=== PATIENT | male | born 1960 | race African-American/Black ===

== ENCOUNTER 2016-04-01 10:59 | Emergency (ER) | payer OTHER ==
[~2016-04-01] VITALS: Ht 172.7 cm; Wt 68.0 kg
[~2016-04-01 10:59] MED LIST: ABAC1TAB3 PO; ACYC30T; ADVAI100I PO; CHOL50006 PO; DARU1TAB PO; FLUC100T41 PO; FLUT1SPR9 NASAL; FOSA70TA PO; HYDR-3533 PO; HYDR-755 PO; IBUP400T20 PO; METHI10 PO; MONT10TA2 PO; NEUR100C PO; NYST500KS SS; SULF1TAB47 PO; TRAM100T19 PO; VALT1TAB26 PO
[2016-04-01 11:02] VITALS: BP 144/94; PULSE 84; RESP 18; TEMP 97.9; O2SAT 95
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
[2016-04-01] MEDS ORDERED: ACETAMINOPHEN/HYDROcodone 325 MG/5 MG TAB PO ONE (12:00)
--- NOTE | 2016-04-01 12:53 | RADRPT ---
EXAM DATE/TIME: 04/01/2016 12:14 [facility] COMPARISON: CHEST PA & LAT , July 02, 2014, 9:51. INDICATIONS : Shortness of breath. MEDICAL HISTORY : Asthma SURGICAL HISTORY : None. ENCOUNTER: Initial ACUITY: 1 day PAIN SCORE: 0/10 LOCATION: Bilateral chest FINDINGS: The cardiac silhouette is enlarged in transverse diameter. The lungs are free of acute parenchymal op acity. No effusions are identified. There is mild scoliotic deformity convex to the right. Fracture o f the left clavicle is present. There is a nodule in the left upper lobe measuring 12 mm. Malignancy is not excluded. CT scan is recommended for further evaluation if clinically indicated. CONCLUSION: 1. No acute cardiopulmonary disease. 2. Left clavicle fracture 3. 12 mm nodule left upper lobe. 4. CT scan is recommended for further evaluation if clinically indicated. Josias Camejo MD on April 01, 2016 at 12:50 Board Certified Radiologist. This report was verified electronically.
[2016-04-01] MEDS ORDERED: OSCA200T PO (13:10)
[2016-04-01] MEDS ORDERED: CETI1TAB39 PO (13:10)
[2016-04-01] MEDS ORDERED: LEXA20TA PO (13:10)
[2016-04-01] MEDS ORDERED: MULT-135 PO (13:10)
[2016-04-01] MEDS ORDERED: CROM4SOL2 EACH EYE (13:10)
[2016-04-01] MEDS ORDERED: ZOVI5OIN TOPICAL (13:10)
[2016-04-01] MEDS ORDERED: ZITH500T PO (13:10)
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
[2016-04-01] MEDS ORDERED: DIFL150T PO (13:19)
[2016-04-01] MEDS ORDERED: IBUP400T20 PO (13:19)
[2016-04-01] MEDS ORDERED: VALT1TAB PO (13:19)
[2016-04-01] MEDS ORDERED: FLUT1SPR5 EACH NARE (13:19)
[2016-04-01] MEDS ORDERED: METH5 PO (13:19)
[2016-04-01] MEDS ORDERED: BACT800T5 PO (13:19)
[2016-04-01] MEDS ORDERED: GABA100C4 PO (13:19)
[2016-04-01] MEDS ORDERED: TRAM50TA PO (13:19)
[2016-04-01] MEDS ORDERED: MONT10TA4 PO (13:19)
[2016-04-01] MEDS ORDERED: NYST1000 SWISH-SWAL (13:19)
[2016-04-01] MEDS ORDERED: HYDR-3133 PO (13:23)
[2016-04-01] MEDS ORDERED: FOSA70TA PO (13:23)
[2016-04-01] MEDS ORDERED: DARU1TAB2 PO (13:23)
[2016-04-01] MEDS ORDERED: DRIS50002 PO (13:23)
[2016-04-01] MEDS ORDERED: ADVA250A INH (13:23)
[2016-04-01] MEDS ORDERED: ABAC1TAB3 PO (13:23)
[2016-04-01] MEDS ORDERED: HYDR-3533 PO (13:33)
== END 2016-04-01 13:54 | disposition home or self-care (01) ==
LOC: NEPB 10:59
DX: S42.022A Displaced fracture of shaft of left clavicle, initial encounter for closed fracture (principal); Z86.19 Personal history of other infectious and parasitic diseases; V23.4XXA Motorcycle driver injured in collision with car, pick-up truck or van in traffic accident, initial encounter; Y93.9 Activity, unspecified; Y92.9 Unspecified place or not applicable; Y99.9 Unspecified external cause status
CPT/HCPCS: 71020; 73030; 73590; 99284

== ENCOUNTER 2018-01-01 00:29 | Observation (INO) ==
[2018-01-01] MEDS ORDERED: Sodium Chlor 0.9% Inj 500 ML IV.SIG SCH (05:00)
[2018-01-01 05:06] LABS: Baso # (Auto) 0.1 th/mm3 (0.0-0.2); Eos # (Auto) 0.9 th/mm3 (0.0-0.4); Hemoglobin 10.2 gm/dL (13.0-17.0); Lymph # (Auto) 1.8 th/mm3 (1.0-4.8); Lymph % (Auto) 30.5 % (9.0-44.0); Mean Corpuscular HGB Conc 34.1 % (32.0-36.0); Mean Corpuscular Hemoglobin 33.4 pg (27.0-34.0); Mean Corpuscular Volume 98.2 fL (80.0-100.0); Mono # (Auto) 0.8 th/mm3 (0.0-0.9); Mono % (Auto) 13.6 % (0.0-8.0); Neut # (Auto) 2.3 th/mm3 (1.8-7.7); Neut % (Auto) 39.9 % (16.0-70.0); Platelet Count 263 th/mm3 (150-450); Red Blood Count 3.05 mil/mm3 (4.50-5.90); Red Cell Distribution Width 13.5 % (11.6-17.2); White Blood Count 5.8 th/mm3 (4.0-11.0)
[2018-01-01 05:20] LABS: Anion Gap 6 meq/L (5-15); Aspartate Aminotransferase 20 U/L (15-37); Blood Urea Nitrogen 11 mg/dL (7-18); Calcium 8.1 mg/dL (8.5-10.1); Carbon Dioxide 26.1 meq/L (21.0-32.0); Chloride 104 meq/L (98-107); Glomerular Filtration Rate Greater Than 89 mL/min (>89); Glucose,Random 85 mg/dL (74-106); Magnesium 1.9 mg/dL (1.5-2.5); Potassium 3.4 meq/L (3.5-5.1); Sodium 136 meq/L (136-145)
[2018-01-01 05:22] LABS: Alanine Aminotransferase 15 U/L (12-78)
[2018-01-01 05:24] LABS: Alkaline Phosphatase 58 U/L (45-117); Total Protein 6.9 g/dL (6.4-8.2)
[2018-01-01] MEDS ORDERED: Acetaminophen 500 MG Tablet PO ONE (05:49)
[2018-01-01 05:59] LABS: ABG Base Excess -1.4 mmol/L (-2-2); ABG PCO2 35 mmHg (38-42); ABG PO2 76 mmHg (61-120)
--- NOTE | 2018-01-01 05:59 | XR ---
EXAM DATE: 01/01/2018 5:37 AM EST AGE/SEX: 57 years / Male INDICATIONS: . Fever and shortness of breath. CLINICAL DATA: This is the patient's initial encounter. Patient reports that signs and symptoms have been present for 1 day and indicates a pain score of 0/10. MEDICAL/SURGICAL HISTORY: Asthma. HIV. Mitral valve disease. Inguinal hernia repair. Hand brielle jacinto [place] [facility] [place]. . FINDINGS: PA and lateral views of the chest demonstrate the lungs to be symmetrically aerated without evidence of mass, infiltrate or effusion. The cardiomediastinal contours are unremarkable. Osseous structures are intact. CONCLUSION: No acute disease Electronically signed by: Kiran Pittman MD 01/01/2018 5:58 AM EST
--- NOTE | 2018-01-01 07:10 | CT ---
EXAM DATE: 01/01/2018 6:58 AM EST AGE/SEX: 57 years / Male INDICATIONS: Shortness of breath with swollen legs. CLINICAL DATA: This is the patient's initial encounter. Patient reports that signs and symptoms have been present for 1 day and indicates a pain score of 7/10. MEDICAL/SURGICAL HISTORY: HIV. Cardiovascular disease. None. RADIATION DOSE: 8.09 CTDI (mGy) COMPARISON: [facility], CT CHEST W AND W/O CONTRAST, 05/12/2016. . TECHNIQUE: Volumetric scanning was performed using a multi-row detector CT scanner during bolus infu marcelo of 70 ml Omnipaque 350 (iohexol) nonionic water-soluble contrast as a single exam dose. The levi a was post processed with a variety of visualization algorithms including full volume maximum intensi ty projection and sliding thin slab reformation. Using automated exposure control and adjustment of t he mA and/or kV according to patient size, radiation dose was kept as low as reasonably achievable to obtain optimal diagnostic quality images. DICOM format image data is available electronically for r eview and comparison. FINDINGS: Pulmonary Arteries: No filling defects are seen in the pulmonary arteries out to the subsegmental ve ssels. The left and right pulmonary arteries are normal in diameter. Lung: No consolidating infiltrates seen. Interstitial prominence is identified in the left lower lob e which appears chronic. Effusion: None. Mediastinum: No evidence of mediastinal or hilar adenopathy. Other: The axilla is unremarkable. CONCLUSION: 1. No evidence of acute pulmonary embolism. 2. Left lower lobe interstitial lung disease which appears chronic. 3. No evidence of consolidating airspace disease. Electronically signed by: Yayo Cao MD 01/01/2018 7:09 AM EST
--- NOTE | 2018-01-01 07:17 | ED ---
HPI General Chief Complaint: Shortness of Breath/Dyspnea Stated Complaint: Sob swelling legs Time Seen by Provider: 01/01/18 04:28 History of Present Illness This is a 57-year male with history of HIV disease, asthma, who presents today with complaints of shortness of breath and pleuritic chest pain. Patient also reports fevers and chills. There is no nausea vomiting. There is no diaphoresis. Patient states his last CD4 count was over 200. He states he has been taking his medications as prescribed. Related Data Home Medications Medication Instructions Recorded Confirmed [id number] 1 tab PO DAILY 01/01/18 01/05/18 [Triumeq] albuterol sulfate [ProAir HFA] 2 puff INHALATION Q4-6H PRN 01/01/18 01/05/18 alendronate [Fosamax] 70 mg PO QWEEK 01/01/18 01/05/18 ammonium lactate [AmLactin] 1 applic TOPICAL DAILY 01/01/18 01/05/18 azithromycin 1,000 mg PO WEEKLY 01/01/18 01/05/18 cetirizine [Zyrtec] 10 mg PO EVERY OTHER DAY 01/01/18 01/05/18 cholestyramine (with sugar) 4 g PO BID 01/01/18 01/05/18 darunavir-cobicistat [Prezcobix] 1 tab PO DAILY 01/01/18 01/05/18 ergocalciferol (vitamin D2) 50,000 unit PO QWEEK 01/01/18 01/05/18 [Vitamin D2] fluconazole 150 mg PO DAILY 01/01/18 01/05/18 fluticasone [Flonase Allergy 2 spray INTRANASAL BID 01/01/18 01/05/18 Relief] fluticasone-salmeterol [Advair 1 inh INHALATION BID 01/01/18 01/05/18 Diskus] gentamicin 1 applic TOPICAL TID 01/01/18 01/05/18 hydrocodone-acetaminophen 2 tab PO BID PRN 01/01/18 01/05/18 hydroxyzine HCl 50 mg PO QID PRN 01/01/18 01/05/18 ibuprofen 400 mg PO TID PRN 01/01/18 01/05/18 levocetirizine 10 mg PO EVERY OTHER DAY 01/01/18 01/05/18 montelukast [Singulair] 10 mg PO QPM 01/01/18 01/05/18 mupirocin calcium [Bactroban] 1 applic TOPICAL BID PRN 01/01/18 01/05/18 sulfamethoxazole-trimethoprim 1 tab PO DAILY 01/01/18 01/05/18 [Bactrim DS] valacyclovir [Valtrex] 1,000 mg PO DAILY 01/01/18 01/05/18 Previous Rx's Medication Instructions Recorded docusate sodium [Colace] 100 mg PO BID #20 cap 01/06/18 polyethylene glycol 3350 [Miralax] 17 g PO DAILY PRN 5 Days #10 each 01/06/18 Allergies Allergy/AdvReac Type Severity Reaction Status Date / Time ciprofloxacin Allergy Severe Hives Verified 01/01/18 14:45 indinavir Allergy Severe SEVERE,BIZARRE Verified 01/01/18 14:45 BEHAVIOR;HALLUCINATIONS NEOLOMINE Allergy Severe ASTHMA Uncoded 01/01/18 14:45 ATTACK Review of Systems Constitutional Reports chills and Reports fever(s) Eyes Reports system reviewed and no additional complaints, except as docu ENT Reports system reviewed and no additional complaints, except as docu Cardiovascular Reports chest pain, Denies diaphoresis and Reports dyspnea Respiratory Denies chest congestion, Denies cough and Reports dyspnea Gastrointestinal Reports system reviewed and no additional complaints, except as docu, Denies nausea and Denies vomiting Genitourinary Reports system reviewed and no additional complaints, except as docu Musculoskeletal Reports system reviewed and no additional complaints, except as docu Neurologic Reports system reviewed and no additional complaints, except as docu, Denies dizziness and Denies headache(s) [facility] Family History Family History Mother Family history of hypertension Social History Social History Substance History: No History of Abuse Second Hand Smoke Exposure: No Smoking Status: Never smoker How Often Do You Have a Drink Containing Alcohol: Monthly or less Recent Travel in [facility] within the Last 8 Weeks: No Recent Out of Country Travel within the Last 8 Weeks: No Immunization History Tetanus Immunization: Unsure Exam Narrative Exam Narrative: GENERAL: Well-developed well-nourished male in no obvious respiratory distress. SKIN: Focused skin assessment warm/dry. HEAD: Atraumatic. Normocephalic. EYES: No scleral icterus. No injection or drainage. ENT: No nasal bleeding or discharge. Mucous membranes pink and moist. NECK: Trachea midline. Supple. CARDIOVASCULAR: Regular rate and rhythm. 2/6 systolic murmur heard at the left sternal border. RESPIRATORY: No accessory muscle use. Clear to auscultation. Breath sounds equal bilaterally. GASTROINTESTINAL: Abdomen soft, non-tender, nondistended. Hepatic and splenic margins not palpable. MUSCULOSKELETAL: No obvious deformities. No clubbing. No cyanosis. No edema. NEUROLOGICAL: Awake and alert. No obvious cranial nerve deficits. Motor grossly within normal limits. Normal speech. Course Initial Documented Vital Signs Temperature 100.8 F H 01/01/18 01:01 EDT Pulse Rate 104 H 01/01/18 01:01 EDT Respiratory Rate 16 01/01/18 01:01 EDT Blood Pressure 127/83 01/01/18 01:01 EDT Pulse Oximetry 99 01/01/18 01:01 EDT Last Documented Vital Signs Temperature 97.8 F 01/03/18 07:24 Pulse Rate 86 01/03/18 07:24 Respiratory Rate 20 01/03/18 07:24 Blood Pressure 120/64 01/03/18 07:24 Pulse Oximetry 98 01/03/18 07:24 Sign Out Sign Out Data: Patient Sign Out occurred on 01/01/18 at 08:01. Patient's care was discussed, and care was transferred from Yoav Mujica MD to Noe Khanna. Sign Out Comment: 57-year-old male with history of HIV disease, presents today with complaints of fevers chills and dyspnea. Patient has a pH above 7.4. Patient also has a PCO2 that is 35. This is indicative of tachypnea. Concern is for pulmonary embolus. CT scan of the chest was ordered to rule out pulmonary emboli. He was signed out to Dr. Khanna. I anticipate the patient will need admission. He does have a fever of unknown origin at this time. Last updated by Yoav Mujica MD at 01/01/18 07:26 Medical Decision Making MDM Narrative Medical Screen Exam Complete: Yes Emergency Medical Condition: Yes Differential Diagnosis Differential Diagnosis: Atypical pneumonia versus pulmonary embolus versus metabolic derangement versus cystitis versus viral syndrome Lab Data Result diagrams: 01/02/18 09:43 01/02/18 09:43 Lab Results 11/04/18 11/04/18 11/04/18 Range/Units 04:45 04:50 04:50 WBC 5.8 (4.0-11.0) th/mm3 RBC 3.05 L (4.50-5.90) mil/mm3 Hgb 10.2 L (13.0-17.0) gm/dL Hct 30.0 L (39.0-51.0) % MCV 98.2 (80.0-100.0) fL MCH 33.4 (27.0-34.0) pg MCHC 34.1 (32.0-36.0) % RDW 13.5 (11.6-17.2) % Plt Count 263 (150-450) th/mm3 MPV 6.0 L (7.0-11.0) fL Neut % (Auto) 39.9 (16.0-70.0) % Lymph % (Auto) 30.5 (9.0-44.0) % [place] % (Auto) 13.6 H (0.0-8.0) % Eos % (Auto) 15.0 H (0.0-4.0) % Baso % (Auto) 1.0 (0.0-2.0) % Neut # (Auto) 2.3 (1.8-7.7) th/mm3 Lymph # (Auto) 1.8 (1.0-4.8) th/mm3 [place] # (Auto) 0.8 (0.0-0.9) th/mm3 Eos # (Auto) 0.9 H (0.0-0.4) th/mm3 Baso # (Auto) 0.1 (0.0-0.2) th/mm3 WBC Differential . Differential Comment Auto diff final ESR (0-20) mm/hr Puncture Site Patient Temperature O2 Saturation (90-100) % ABG pH (7.380-7.420) ABG pCO2 (38-42) mmHg ABG pO2 (61-120) mmHg ABG HCO3 (22-26) mmol/L ABG O2 Content (12.0-20.0) Vol % ABG Base Excess (-2-2) mmol/L ABG Methemoglobin (0-2) % Ji Test Hemoglobin (12.0-16.0) G/DL Carboxyhemoglobin (0-4) % Inspired O2 % Critical Value Sodium 136 (136-145) meq/L Potassium 3.4 L (3.5-5.1) meq/L Chloride 104 (98-107) meq/L Carbon Dioxide 26.1 (21.0-32.0) meq/L Anion Gap 6 (5-15) meq/L BUN 11 (7-18) mg/dL Creatinine 0.92 (0.60-1.30) mg/dL Estimated GFR Greater than 89 (>89) mL/min Random Glucose 85 (74-106) mg/dL Hemoglobin A1c (4.3-6.0) % Lactic Acid 1.6 (0.4-2.0) mmol/L Calcium 8.1 L (8.5-10.1) mg/dL Magnesium 1.9 (1.5-2.5) mg/dL Total Bilirubin 0.8 (0.2-1.0) mg/dL AST 20 (15-37) U/L ALT 15 (12-78) U/L Alkaline Phosphatase 58 (45-117) U/L Total Creatine Kinase (39-308) U/L Troponin I Less than 0.02 L (0.02-0.05) ng/mL C-Reactive Protein (0.00-0.30) mg/dL B-Natriuretic Peptide (0-100) pg/mL Total Protein 6.9 (6.4-8.2) g/dL Albumin 3.0 L (3.4-5.0) g/dL Triglycerides (42-150) mg/dL Cholesterol (120-200) mg/dL LDL Cholesterol, Calc (0-99) mg/dL HDL Cholesterol (40.0-60.0) mg/dL Cholesterol/HDL Ratio Ratio TSH (0.358-3.740) uIU/mL Urine Color (Yellw/Straw) Urine Clarity (Clear) Urine pH (5.0-8.5) Ur Specific [place] (1.002-1.035) Urine Protein (Neg-Trace) mg/dL Urine Glucose (UA) (Negative) mg/dL Urine Ketones (Negative) mg/dL Urine Occult Blood (Negative) Urine Nitrate (Negative) Urine Bilirubin (Negative) Urine Urobilinogen (Less than 2) mg/dL Ur Leukocyte Esterase (Negative) Urine RBC (0-3) /hpf Urine WBC (0-5) /hpf Ur Squamous Epith Cells (0-5) /hpf Urine Mucus (Occasional) /lpf Micro UA Comment Ur Microscopic Review Urine Culture Comments 01/01/18 01/01/18 01/01/18 Range/Units 05:51 07:50 09:50 WBC (4.0-11.0) th/mm3 RBC (4.50-5.90) mil/mm3 Hgb (13.0-17.0) gm/dL Hct (39.0-51.0) % MCV (80.0-100.0) fL MCH (27.0-34.0) pg MCHC (32.0-36.0) % RDW (11.6-17.2) % Plt Count (150-450) th/mm3 MPV (7.0-11.0) fL Neut % (Auto) (16.0-70.0) % Lymph % (Auto) (9.0-44.0) % [place] % (Auto) (0.0-8.0) % Eos % (Auto) (0.0-4.0) % Baso % (Auto) (0.0-2.0) % Neut # (Auto) (1.8-7.7) th/mm3 Lymph # (Auto) (1.0-4.8) th/mm3 [place] # (Auto) (0.0-0.9) th/mm3 Eos # (Auto) (0.0-0.4) th/mm3 Baso # (Auto) (0.0-0.2) th/mm3 WBC Differential Differential Comment ESR (0-20) mm/hr Puncture Site Left radial Patient Temperature 98.6 O2 Saturation 94 (90-100) % ABG pH 7.43 H (7.380-7.420) ABG pCO2 35 L (38-42) mmHg ABG pO2 76 (61-120) mmHg ABG HCO3 22 (22-26) mmol/L ABG O2 Content 12.4 (12.0-20.0) Vol % ABG Base Excess -1.4 (-2-2) mmol/L ABG Methemoglobin 0.4 (0-2) % Ji Test Present Hemoglobin 9.4 L (12.0-16.0) G/DL Carboxyhemoglobin 1.7 (0-4) % Inspired O2 21 % Critical Value No Sodium (136-145) meq/L Potassium (3.5-5.1) meq/L Chloride (98-107) meq/L Carbon Dioxide (21.0-32.0) meq/L Anion Gap (5-15) meq/L BUN (7-18) mg/dL Creatinine (0.60-1.30) mg/dL Estimated GFR (>89) mL/min Random Glucose (74-106) mg/dL Hemoglobin A1c (4.3-6.0) % Lactic Acid (0.4-2.0) mmol/L Calcium (8.5-10.1) mg/dL Magnesium (1.5-2.5) mg/dL Total Bilirubin (0.2-1.0) mg/dL AST (15-37) U/L ALT (12-78) U/L Alkaline Phosphatase (45-117) U/L Total Creatine Kinase 132 (39-308) U/L Troponin I Less than 0.02 L (0.02-0.05) ng/mL C-Reactive Protein (0.00-0.30) mg/dL B-Natriuretic Peptide (0-100) pg/mL Total Protein (6.4-8.2) g/dL Albumin (3.4-5.0) g/dL Triglycerides (42-150) mg/dL Cholesterol (120-200) mg/dL LDL Cholesterol, Calc (0-99) mg/dL HDL Cholesterol (40.0-60.0) mg/dL Cholesterol/HDL Ratio Ratio TSH (0.358-3.740) uIU/mL Urine Color Yellow (Yellw/Straw) Urine Clarity Clear (Clear) Urine pH 6.0 (5.0-8.5) Ur Specific [place] 1.017 (1.002-1.035) Urine Protein Negative (Neg-Trace) mg/dL Urine Glucose (UA) Negative (Negative) mg/dL Urine Ketones Negative (Negative) mg/dL Urine Occult Blood Negative (Negative) Urine Nitrate Negative (Negative) Urine Bilirubin Negative (Negative) Urine Urobilinogen Less than 2 (Less than 2) mg/dL Ur Leukocyte Esterase Negative (Negative) Urine RBC 2 (0-3) /hpf Urine WBC 1 (0-5) /hpf Ur Squamous Epith Cells <1 (0-5) /hpf Urine Mucus Few H (Occasional) /lpf Micro UA Comment Culture not ind Ur Microscopic Review Not Reportable Urine Culture Comments Culture not ind 01/01/18 01/01/18 01/01/18 Range/Units 09:50 09:50 09:50 WBC (4.0-11.0) th/mm3 RBC (4.50-5.90) mil/mm3 Hgb (13.0-17.0) gm/dL Hct (39.0-51.0) % MCV (80.0-100.0) fL MCH (27.0-34.0) pg MCHC (32.0-36.0) % RDW (11.6-17.2) % Plt Count (150-450) th/mm3 MPV (7.0-11.0) fL Neut % (Auto) (16.0-70.0) % Lymph % (Auto) (9.0-44.0) % [place] % (Auto) (0.0-8.0) % Eos % (Auto) (0.0-4.0) % Baso % (Auto) (0.0-2.0) % Neut # (Auto) (1.8-7.7) th/mm3 Lymph # (Auto) (1.0-4.8) th/mm3 [place] # (Auto) (0.0-0.9) th/mm3 Eos # (Auto) (0.0-0.4) th/mm3 Baso # (Auto) (0.0-0.2) th/mm3 WBC Differential Differential Comment ESR (0-20) mm/hr Puncture Site Patient Temperature O2 Saturation (90-100) % ABG pH (7.380-7.420) ABG pCO2 (38-42) mmHg ABG pO2 (61-120) mmHg ABG HCO3 (22-26) mmol/L ABG O2 Content (12.0-20.0) Vol % ABG Base Excess (-2-2) mmol/L ABG Methemoglobin (0-2) % Ji Test Hemoglobin (12.0-16.0) G/DL Carboxyhemoglobin (0-4) % Inspired O2 % Critical Value Sodium (136-145) meq/L Potassium (3.5-5.1) meq/L Chloride (98-107) meq/L Carbon Dioxide (21.0-32.0) meq/L Anion Gap (5-15) meq/L BUN (7-18) mg/dL Creatinine (0.60-1.30) mg/dL Estimated GFR (>89) mL/min Random Glucose (74-106) mg/dL Hemoglobin A1c 4.4 (4.3-6.0) % Lactic Acid (0.4-2.0) mmol/L Calcium (8.5-10.1) mg/dL Magnesium (1.5-2.5) mg/dL Total Bilirubin (0.2-1.0) mg/dL AST (15-37) U/L ALT (12-78) U/L Alkaline Phosphatase (45-117) U/L Total Creatine Kinase (39-308) U/L Troponin I (0.02-0.05) ng/mL C-Reactive Protein (0.00-0.30) mg/dL B-Natriuretic Peptide 58 (0-100) pg/mL Total Protein (6.4-8.2) g/dL Albumin (3.4-5.0) g/dL Triglycerides (42-150) mg/dL Cholesterol (120-200) mg/dL LDL Cholesterol, Calc (0-99) mg/dL HDL Cholesterol (40.0-60.0) mg/dL Cholesterol/HDL Ratio Ratio TSH 1.060 (0.358-3.740) uIU/mL Urine Color (Yellw/Straw) Urine Clarity (Clear) Urine pH (5.0-8.5) Ur Specific [place] (1.002-1.035) Urine Protein (Neg-Trace) mg/dL Urine Glucose (UA) (Negative) mg/dL Urine Ketones (Negative) mg/dL Urine Occult Blood (Negative) Urine Nitrate (Negative) Urine Bilirubin (Negative) Urine Urobilinogen (Less than 2) mg/dL Ur Leukocyte Esterase (Negative) Urine RBC (0-3) /hpf Urine WBC (0-5) /hpf Ur Squamous Epith Cells (0-5) /hpf Urine Mucus (Occasional) /lpf Micro UA Comment Ur Microscopic Review Urine Culture Comments 01/01/18 01/02/18 01/02/18 Range/Units 09:50 04:10 09:43 WBC 5.2 (4.0-11.0) th/mm3 RBC 3.05 L (4.50-5.90) mil/mm3 Hgb 10.3 L (13.0-17.0) gm/dL Hct 29.7 L (39.0-51.0) % MCV 97.4 (80.0-100.0) fL MCH 33.8 (27.0-34.0) pg MCHC 34.7 (32.0-36.0) % RDW 13.5 (11.6-17.2) % Plt Count 285 (150-450) th/mm3 MPV 6.4 L (7.0-11.0) fL Neut % (Auto) 79.0 H (16.0-70.0) % Lymph % (Auto) 17.4 (9.0-44.0) % [place] % (Auto) 2.9 (0.0-8.0) % Eos % (Auto) 0.0 (0.0-4.0) % Baso % (Auto) 0.7 (0.0-2.0) % Neut # (Auto) 4.1 (1.8-7.7) th/mm3 Lymph # (Auto) 0.9 L (1.0-4.8) th/mm3 [place] # (Auto) 0.2 (0.0-0.9) th/mm3 Eos # (Auto) 0.0 (0.0-0.4) th/mm3 Baso # (Auto) 0.0 (0.0-0.2) th/mm3 WBC Differential . Differential Comment Auto diff final ESR (0-20) mm/hr Puncture Site Patient Temperature O2 Saturation (90-100) % ABG pH (7.380-7.420) ABG pCO2 (38-42) mmHg ABG pO2 (61-120) mmHg ABG HCO3 (22-26) mmol/L ABG O2 Content (12.0-20.0) Vol % ABG Base Excess (-2-2) mmol/L ABG Methemoglobin (0-2) % Ji Test Hemoglobin (12.0-16.0) G/DL Carboxyhemoglobin (0-4) % Inspired O2 % Critical Value Sodium (136-145) meq/L Potassium (3.5-5.1) meq/L Chloride (98-107) meq/L Carbon Dioxide (21.0-32.0) meq/L Anion Gap (5-15) meq/L BUN (7-18) mg/dL Creatinine (0.60-1.30) mg/dL Estimated GFR (>89) mL/min Random Glucose (74-106) mg/dL Hemoglobin A1c (4.3-6.0) % Lactic Acid (0.4-2.0) mmol/L Calcium (8.5-10.1) mg/dL Magnesium (1.5-2.5) mg/dL Total Bilirubin (0.2-1.0) mg/dL AST (15-37) U/L ALT (12-78) U/L Alkaline Phosphatase (45-117) U/L Total Creatine Kinase 115 (39-308) U/L Troponin I Less than 0.02 L (0.02-0.05) ng/mL C-Reactive Protein (0.00-0.30) mg/dL B-Natriuretic Peptide (0-100) pg/mL Total Protein (6.4-8.2) g/dL Albumin (3.4-5.0) g/dL Triglycerides 46 (42-150) mg/dL Cholesterol 93 L (120-200) mg/dL LDL Cholesterol, Calc 51 (0-99) mg/dL HDL Cholesterol 32.4 L (40.0-60.0) mg/dL Cholesterol/HDL Ratio 2.87 Ratio TSH (0.358-3.740) uIU/mL Urine Color (Yellw/Straw) Urine Clarity (Clear) Urine pH (5.0-8.5) Ur Specific [place] (1.002-1.035) Urine Protein (Neg-Trace) mg/dL Urine Glucose (UA) (Negative) mg/dL Urine Ketones (Negative) mg/dL Urine Occult Blood (Negative) Urine Nitrate (Negative) Urine Bilirubin (Negative) Urine Urobilinogen (Less than 2) mg/dL Ur Leukocyte Esterase (Negative) Urine RBC (0-3) /hpf Urine WBC (0-5) /hpf Ur Squamous Epith Cells (0-5) /hpf Urine Mucus (Occasional) /lpf Micro UA Comment Ur Microscopic Review Urine Culture Comments 01/02/18 01/02/18 01/02/18 Range/Units 09:43 09:43 09:43 WBC (4.0-11.0) th/mm3 RBC (4.50-5.90) mil/mm3 Hgb (13.0-17.0) gm/dL Hct (39.0-51.0) % MCV (80.0-100.0) fL MCH (27.0-34.0) pg MCHC (32.0-36.0) % RDW (11.6-17.2) % Plt Count (150-450) th/mm3 MPV (7.0-11.0) fL Neut % (Auto) (16.0-70.0) % Lymph % (Auto) (9.0-44.0) % [place] % (Auto) (0.0-8.0) % Eos % (Auto) (0.0-4.0) % Baso % (Auto) (0.0-2.0) % Neut # (Auto) (1.8-7.7) th/mm3 Lymph # (Auto) (1.0-4.8) th/mm3 [place] # (Auto) (0.0-0.9) th/mm3 Eos # (Auto) (0.0-0.4) th/mm3 Baso # (Auto) (0.0-0.2) th/mm3 WBC Differential Differential Comment ESR 43 H (0-20) mm/hr Puncture Site Patient Temperature O2 Saturation (90-100) % ABG pH (7.380-7.420) ABG pCO2 (38-42) mmHg ABG pO2 (61-120) mmHg ABG HCO3 (22-26) mmol/L ABG O2 Content (12.0-20.0) Vol % ABG Base Excess (-2-2) mmol/L ABG Methemoglobin (0-2) % Ji Test Hemoglobin (12.0-16.0) G/DL Carboxyhemoglobin (0-4) % Inspired O2 % Critical Value Sodium 137 (136-145) meq/L Potassium 4.5 D (3.5-5.1) meq/L Chloride 104 (98-107) meq/L Carbon Dioxide 24.9 (21.0-32.0) meq/L Anion Gap 8 (5-15) meq/L BUN 9 (7-18) mg/dL Creatinine 0.93 (0.60-1.30) mg/dL Estimated GFR Greater than 89 (>89) mL/min Random Glucose 133 H (74-106) mg/dL Hemoglobin A1c (4.3-6.0) % Lactic Acid (0.4-2.0) mmol/L Calcium 8.3 L (8.5-10.1) mg/dL Magnesium (1.5-2.5) mg/dL Total Bilirubin 0.5 (0.2-1.0) mg/dL AST 18 (15-37) U/L ALT 16 (12-78) U/L Alkaline Phosphatase 51 (45-117) U/L Total Creatine Kinase (39-308) U/L Troponin I (0.02-0.05) ng/mL C-Reactive Protein 2.84 H (0.00-0.30) mg/dL B-Natriuretic Peptide (0-100) pg/mL Total Protein 6.9 (6.4-8.2) g/dL Albumin 2.7 L (3.4-5.0) g/dL Triglycerides (42-150) mg/dL Cholesterol (120-200) mg/dL LDL Cholesterol, Calc (0-99) mg/dL HDL Cholesterol (40.0-60.0) mg/dL Cholesterol/HDL Ratio Ratio TSH (0.358-3.740) uIU/mL Urine Color (Yellw/Straw) Urine Clarity (Clear) Urine pH (5.0-8.5) Ur Specific [place] (1.002-1.035) Urine Protein (Neg-Trace) mg/dL Urine Glucose (UA) (Negative) mg/dL Urine Ketones (Negative) mg/dL Urine Occult Blood (Negative) Urine Nitrate (Negative) Urine Bilirubin (Negative) Urine Urobilinogen (Less than 2) mg/dL Ur Leukocyte Esterase (Negative) Urine RBC (0-3) /hpf Urine WBC (0-5) /hpf Ur Squamous Epith Cells (0-5) /hpf Urine Mucus (Occasional) /lpf Micro UA Comment Ur Microscopic Review Urine Culture Comments Imaging Data Radiologist's impression: Venous Doppler Study 01/01/18 00:00 CONCLUSION: The study is negative for bilateral lower extremity deep venous thrombosis. Chest X-Ray 01/01/18 04:45 CONCLUSION: No acute disease Chest CTA 01/01/18 06:19 CONCLUSION: 1. No evidence of acute pulmonary embolism. 2. Left lower lobe interstitial lung disease which appears chronic. 3. No evidence of consolidating airspace disease. Discharge Plan Discharge Disposition Patient Disposition: 01 Discharge Home Discharge Condition Condition: Good Discharge Order Discharge Orders: Discharge Order (Routine); Ordered 01/03/18 Ordered By: Jamie Song Physicians Team ED Provider: Noe Khanna Primary Care Provider: UNKNOWN, Attending Provider: Jamie Song Other Providers: Ronni Rudolph ; Ying Charles Status ED Status: Left Department Discharge Information Discharge Date/Time: 01/01/18 10:15
[2018-01-01 08:28] LABS: Bilirubin,Urine Negative (Negative); Clarity,Urine Clear (Clear); Color,Urine Yellow (Yellw/Straw); Glucose,Urine (UA) Negative (Negative); Leukocyte Esterase,Urine Negative (Negative); Mucus,Urine Few /lpf (Occasional); Nitrite,Urine Negative (Negative); Specific Gravity,Urine 1.017 (1.002-1.035); Squamous Epithelial Cell,Urine <1 /hpf (0-5)
[2018-01-01] MEDS ORDERED: Bisacodyl 10 MG Supp RECTAL PRN (08:37)
[2018-01-01] MEDS ORDERED: Acetaminophen 325 MG Tablet PO PRN (08:37)
--- NOTE | 2018-01-01 08:47 | P.HP ---
History of Present Illness Primary Care Physician: UNKNOWN Chief Complaint: Shortness of Breath/Dyspnea History of Present Illness: This is a pleasant 57 y/o Male with HIV, Asthma, who came to ER with Pleuritic chest pain and shortness of breath Patient also reports fevers and chills. There is no nausea vomiting. There is no diaphoresis. Patient states his last CD4 count was over 200. He states he has been taking his medications as prescribed. he has COPD, Osteoporosis Seen in Emergency room, he is been followed by his Primary Care physician due to chronic lower extremity edema his Albumin is low in 3, asking for Compression stockings will order this ones for the patient, Review of Systems All other systems reviewed negative except as stated in HPI PMFSH - History History Provided By: Patient - Medical History Medical History: Medical History (Last Updated 01/01/18 @ 01:03 EDT by Dario Ortega) Asthma HIV (human immunodeficiency virus infection) Mitral valve disease - Surgical History Surgical History: Surgical History (Last Updated 01/01/18 @ 04:47 by Yumiko Spaulding) H/O hand surgery Hx of inguinal hernia surgery - Family History Family History: Family History (Last Updated 01/01/18 @ 09:34 by Kanu Gongora MD) Mother Family history of hypertension - Tobacco History Second Hand Smoke Exposure: No Smoking Status: Never smoker - Alcohol History How Often Do You Have a Drink Containing Alcohol: 2 to 4 times a month - Substance Use History Substance History: No History of Abuse - Travel History Recent Travel in the [place] Within the Last 8 Weeks: No Recent Travel Out of the Country Within the Last 8 Weeks: No - Immunization History Tetanus Immunization: Unsure Medications and Allergies Allergies Allergy/AdvReac Type Severity Reaction Status Date / Time ciprofloxacin Allergy Severe Hives Verified 01/01/18 01:04 EDT indinavir Allergy Severe SEVERE,BIZARRE Verified 01/01/18 01:04 EDT BEHAVIOR;HALLUCINATIONS NEOLOMINE Allergy Severe ASTHMA Uncoded 11/12/03 19:41 ATTACK Home Medications Medication Instructions Recorded Confirmed Type [id number] 1 tab PO DAILY 01/01/18 01/01/18 History [Triumeq] albuterol sulfate [ProAir HFA] 2 puff INHALATION Q4-6H PRN 01/01/18 01/01/18 History alendronate [Fosamax] 70 mg PO QWEEK 01/01/18 01/01/18 History azithromycin 1,000 mg PO WEEKLY 01/01/18 01/01/18 History darunavir-cobicistat [Prezcobix] 1 tab PO DAILY 01/01/18 01/01/18 History ergocalciferol (vitamin D2) 50,000 unit PO QWEEK 01/01/18 01/01/18 History [Vitamin D2] fluconazole 150 mg PO DAILY 01/01/18 01/01/18 History fluticasone [Flonase Allergy 2 spray INTRANASAL BID 01/01/18 01/01/18 History Relief] fluticasone-salmeterol [Advair 1 inh INHALATION BID 01/01/18 01/01/18 History Diskus] gentamicin 1 applic TOPICAL TID 01/01/18 01/01/18 History hydroxyzine HCl 50 mg PO QID PRN 01/01/18 01/01/18 History montelukast [Singulair] 10 mg PO QPM 01/01/18 01/01/18 History mupirocin calcium [Bactroban] 1 applic TOPICAL BID PRN 01/01/18 01/01/18 History sulfamethoxazole-trimethoprim 1 tab PO DAILY 01/01/18 01/01/18 History [Bactrim DS] valacyclovir [Valtrex] 1,000 mg PO DAILY 01/01/18 01/01/18 History Exam Vital signs: Vital Signs 01/01/18 01:01 EDT 01/01/18 04:49 01/01/18 04:50 Temperature 100.8 F H Pulse Rate 104 H 98 H 98 H Respiratory Rate 16 20 Blood Pressure 127/83 134/77 Pulse Oximetry 99 100 01/01/18 04:51 01/01/18 07:05 01/01/18 08:00 Temperature 98.2 F Pulse Rate 94 H 94 H Respiratory Rate 16 Blood Pressure 112/66 Pulse Oximetry 100 96 01/01/18 08:19 Temperature Pulse Rate Respiratory Rate Blood Pressure Pulse Oximetry 96 Intake & Output 12/31/17 01/01/18 01/01/18 19:59 06:59 18:59 Intake Total Balance Weight Intake: IV NS Inj 500 ML @ 1000 mls/hr IV. SIG BOLUS [facility] Rx#:[id number] Narrative: GENERAL: Well-developed well-nourished male in no obvious respiratory distress. SKIN: Focused skin assessment warm/dry. HEAD: Atraumatic. Normocephalic. EYES: No scleral icterus. No injection or drainage. ENT: No nasal bleeding or discharge. Mucous membranes pink and moist. NECK: Trachea midline. Supple. CARDIOVASCULAR: Regular rate and rhythm. at this time I was not able to find the Murmur. RESPIRATORY: Decreased breath sounds bilateral, soft inspiratory crackles specially on Right base. GASTROINTESTINAL: Abdomen soft, non-tender, nondistended. Hepatic and splenic margins not palpable. MUSCULOSKELETAL: No obvious deformities. No clubbing. No cyanosis. No edema. NEUROLOGICAL: Awake and alert. No obvious cranial nerve deficits. Motor grossly within normal limits. Normal speech. Results - Labs CBC & Chem 7: 01/01/18 04:50 01/01/18 04:50 Labs: Laboratory Results - last 24 hr 01/01/18 01/01/18 01/01/18 04:45 04:50 04:50 WBC 5.8 RBC 3.05 L Hgb 10.2 L Hct 30.0 L MCV 98.2 MCH 33.4 MCHC 34.1 RDW 13.5 Plt Count 263 MPV 6.0 L Neut % (Auto) 39.9 Lymph % (Auto) 30.5 Mora % (Auto) 13.6 H Eos % (Auto) 15.0 H Baso % (Auto) 1.0 Neut # (Auto) 2.3 Lymph # (Auto) 1.8 Mora # (Auto) 0.8 Eos # (Auto) 0.9 H Baso # (Auto) 0.1 WBC Differential . Differential Comment Auto diff final Puncture Site Patient Temperature O2 Saturation ABG pH ABG pCO2 ABG pO2 ABG HCO3 ABG O2 Content ABG Base Excess ABG Methemoglobin Ji Test Hemoglobin Carboxyhemoglobin Inspired O2 Critical Value Sodium 136 Potassium 3.4 L Chloride 104 Carbon Dioxide 26.1 Anion Gap 6 BUN 11 Creatinine 0.92 Estimated GFR Greater than 89 Random Glucose 85 Lactic Acid 1.6 Calcium 8.1 L Magnesium 1.9 Total Bilirubin 0.8 AST 20 ALT 15 Alkaline Phosphatase 58 Troponin I Less than 0.02 L Total Protein 6.9 Albumin 3.0 L Urine Color Urine Clarity Urine pH Ur Specific Ethan Urine Protein Urine Glucose (UA) Urine Ketones Urine Occult Blood Urine Nitrate Urine Bilirubin Urine Urobilinogen Ur Leukocyte Esterase Urine RBC Urine WBC Ur Squamous Epith Cells Urine Mucus Micro UA Comment Ur Microscopic Review Urine Culture Comments 01/01/18 01/01/18 05:51 07:50 WBC RBC Hgb Hct MCV MCH MCHC RDW Plt Count MPV Neut % (Auto) Lymph % (Auto) Mora % (Auto) Eos % (Auto) Baso % (Auto) Neut # (Auto) Lymph # (Auto) Mora # (Auto) Eos # (Auto) Baso # (Auto) WBC Differential Differential Comment Puncture Site Left radial Patient Temperature 98.6 O2 Saturation 94 ABG pH 7.43 H ABG pCO2 35 L ABG pO2 76 ABG HCO3 22 ABG O2 Content 12.4 ABG Base Excess -1.4 ABG Methemoglobin 0.4 Ji Test Present Hemoglobin 9.4 L Carboxyhemoglobin 1.7 Inspired O2 21 Critical Value No Sodium Potassium Chloride Carbon Dioxide Anion Gap BUN Creatinine Estimated GFR Random Glucose Lactic Acid Calcium Magnesium Total Bilirubin AST ALT Alkaline Phosphatase Troponin I Total Protein Albumin Urine Color Yellow Urine Clarity Clear Urine pH 6.0 Ur Specific Ethan 1.017 Urine Protein Negative Urine Glucose (UA) Negative Urine Ketones Negative Urine Occult Blood Negative Urine Nitrate Negative Urine Bilirubin Negative Urine Urobilinogen Less than 2 Ur Leukocyte Esterase Negative Urine RBC 2 Urine WBC 1 Ur Squamous Epith Cells <1 Urine Mucus Few H Micro UA Comment Culture not ind Ur Microscopic Review Not Reportable Urine Culture Comments Culture not ind - Imaging Impressions Chest X-Ray 01/01/18 04:45 CONCLUSION: No acute disease Chest CTA 01/01/18 06:19 CONCLUSION: 1. No evidence of acute pulmonary embolism. 2. Left lower lobe interstitial lung disease which appears chronic. 3. No evidence of consolidating airspace disease. Caprini VTE Risk Assessment Caprini VTE Risk Assessment: Moderate/High Risk (score >= 2) Caprini Risk Assessment Model: Point Value = 1 Point Value = 2 Point Value = 3 Point Value = 5 Age 41-60 Minor surgery BMI > 25 kg/m2 Swollen legs Varicose veins or History of unexplained or recurrent spontaneous Oral contraceptives or hormone replacement Sepsis (< 1 month) Serious lung disease, including pneumonia (< 1 month) Abnormal pulmonary function Acute myocardial infarction Congestive heart failure (< 1 month) History of inflammatory bowel disease Medical patient at bed rest Age 61-74 Arthroscopic surgery Major open surgery (> 45 min) Laparoscopic surgery (> 45 min) Malignancy Confined to bed (> 72 hours) Immobilizing plaster cast Central venous access Age >= 75 History of VTE Family history of VTE Factor V Leiden Prothrombin [id number] Lupus anticoagulant Anticardiolipin antibodies Elevated serum homocysteine Heparin-induced thrombocytopenia Other congenital or acquired thrombophilia Stroke (< 1 month) Elective arthroplasty Hip, pelvis, or leg fracture Acute spinal cord injury (< 1 month) Prophylaxis Regimen: Total Risk Factor Score Risk Level Prophylaxis Regimen 0-1 Low Early ambulation 2 Moderate Order ONE of the following: *Sequential Compression Device (SCD) *Heparin 5000 units SQ BID 3-4 Higher Order ONE of the following medications: *Heparin 5000 units SQ TID *Enoxaparin/Lovenox 40 mg SQ daily (WT < 150 kg, CrCl > 30 mL/min) *Enoxaparin/Lovenox 30 mg SQ daily (WT < 150 kg, CrCl > 10-29 mL/min) *Enoxaparin/Lovenox 30 mg SQ BID (WT < 150 kg, CrCl > 30 mL/min) AND/OR *Sequential Compression Device (SCD) 5 or more Highest Order ONE of the following medications: *Heparin 5000 units SQ TID (Preferred with Epidurals) *Enoxaparin/Lovenox 40 mg SQ daily (WT < 150 kg, CrCl > 30 mL/min) *Enoxaparin/Lovenox 30 mg SQ daily (WT < 150 kg, CrCl > 10-29 mL/min) *Enoxaparin/Lovenox 30 mg SQ BID (WT < 150 kg, CrCl > 30 mL/min) AND *Sequential Compression Device (SCD) Assessment and Plan - Plan 1. Shortness of breath and Pleuritic Chest pain, had CTA and did not found acute reason for this pain and fever all his laboratory is been within normal limits so far, as per Emergency medicine physician was not possible to identify acute infectious process, he is been placed on Observation 23 hours and will consult ID specialist for clearance. Hemoglobin 10.2, WBC 5.8, Platelet count 263, Potassium 3.4, Creatinine 0.92, Lactic acid 1.6. ABGs PH 7.43, CO2 35, PO2 76, HCO3 22, was febrile on admission with core Temperature in 100.8 F. received Acetaminophen, at this time afebrile, no signs of infection. he has Bilateral Inspiratory crackles. he was found to have Inspiratory crackles on bilateral bases, but more accentuated on Right base. may need to start on Empiric antibiotics, and follow ID specialist recommendations. 2. HIV on HAART therapy he had CD4 in 2 when was started on his actual regimen, at this time the patient states is over 200. continue Home medicines 3. Asthma to continue Bronchodilator Mucolytic and incentive spirometry 4. Osteoporosis by history. 5. Mitral valve disease by history, I did not found any murmur at this time but he has bilateral leg edema asked for BNP and Echocardiogram. 6. history of Hyperthyroidism in the past asked for TSH Complete laboratory ID specialist consult [place] Super[employer] consult 23 hour observation. may need Empiric antibiotic management if again develops temperature Following Blood cultures. Bilateral compression stockings Protein Boosts. PT evaluation. DVT prophylaxis with Lovenox. Code Status: Full Code. Discussed Condition With: Patient, Nurse and ER physician. Discharge Planning: once cleared by ID specialist.
[2018-01-01] MEDS: Enoxaparin Inj 40 MG/0.4 ML Syringe SQ SCH (09:12)
[2018-01-01 10:48] LABS: Creatine Kinase 132 U/L (39-308)
[2018-01-01 10:54] LABS: Chol/HDL Ratio 2.87 Ratio; HDL Cholesterol 32.4 mg/dL (40.0-60.0)
[2018-01-01] MEDS ORDERED: SALMETEROL 50 MCG INH SCH (11:00)
[2018-01-01] MEDS ORDERED: FLUTICASONE PROPIONATE INH SCH (11:00)
[2018-01-01] MEDS: Budesonide-Formoterol 160/4.5 MCG 6 GM Inhaler INH SCH ×2 (12:16→23:10)
[2018-01-01] MEDS: valACYclovir 500 MG Tab PO SCH (12:17)
[2018-01-01] MEDS: Fluconazole 100 MG Tablet PO SCH (12:18)
[2018-01-01 12:30] LABS: Hemoglobin A1c 4.4 % (4.3-6.0)
--- NOTE | 2018-01-01 17:27 | US ---
EXAM DATE: 01/01/2018 5:23 PM EST AGE/SEX: 57 years / Male INDICATIONS: Bilateral leg swelling. CLINICAL DATA: This is the patient's initial encounter. Patient reports that signs and symptoms have been present for 1 day and indicates a pain score of 0/10. MEDICAL/SURGICAL HISTORY: HIV. Mitral valve disease. . Hand surgery. Inguinal hernia repair. [place] [facility] [place] 08/09/2014. . TECHNIQUE: Venous ultrasound of both lower extremities was performed from the inguinal ligament to t he proximal calf. Real-time, color Doppler and spectral tracing, compression and augmentation techni ques were used. FINDINGS: Right Leg: Normal compression of the deep venous system from the inguinal region to the proximal abram f. No echogenic clot is seen. Normal response of the venous system to augmentation and respiration. Left Leg: Normal compression of the deep venous system from the inguinal region to the proximal calf . No echogenic clot is seen. Normal response of the venous system to augmentation and respiration. Other: None. CONCLUSION: The study is negative for bilateral lower extremity deep venous thrombosis. Electronically signed by: Yayo Cao MD 01/01/2018 5:25 PM EST
[2018-01-01] MEDS: Montelukast 10 MG Tablet PO SCH (18:10)
[2018-01-01] MEDS ORDERED: MethylPREDNISolone Sod Succinate Inj 125 MG/2 ML Vial IV.PUSH ONE (21:13)
--- NOTE | 2018-01-01 22:44 | ECG ---
Date Performed: 01/01/2018 Time Performed: 04:58:27 PTAGE: 57 years EKG: Sinus rhythm POSSIBLE LEFT ATRIAL ENLARGEMENT POSSIBLE LEFT VENTRICULAR HYPERTROPHY POSSIBLE SEPTAL MYOCARDIAL IN FARCTION ABNORMAL ECG PREVIOUS TRACING : 07/21/2014 12.52 Compared to previous tracing, now with poor R wave progres marcelo which may be septal NM vs lead placement DOCTOR: Chase Escobar Interpretating Date/Time 01/01/2018 22:42:09
[2018-01-01] MEDS: guaiFENesin 600 MG ER Tablet PO SCH (23:06)
[2018-01-02 05:03] LABS: Creatine Kinase 115 U/L (39-308)
[2018-01-02] MEDS ORDERED: ABACAVIR DOLUTEGRAVIR LAMIVUD PO SCH (09:00)
[2018-01-02] MEDS ORDERED: DARUNAVIR COBICISTAT PO SCH ×2 (09:00)
--- NOTE | 2018-01-02 09:16 | ECHRPT ---
Indication: HEART FAILURE CONCLUSIONS Normal left ventricular size. Wall thickness is normal. The left ventricular systolic function is normal with an estimated ejection fraction in the range of 55-60%. Trace mitral valve regurgitation. The estimated pulmonary arterial pressure is 47 mmHg. BP: / HR: Rhythm: MEASUREMENTS (Male / Female) Normal Values Technical Quality: 2D ECHO LV Diastolic Diameter PLAX 4.4 cm 4.2 - 5.9 / 3.9 - 5.3 cm LV Systolic Diameter PLAX 3.0 cm IVS Diastolic Thickness 1.0 cm 0.6 - 1.0 / 0.6 - 0.9 cm LVPW Diastolic Thickness 0.8 cm 0.6 - 1.0 / 0.6 - 0.9 cm LV Relative Wall Thickness 0.4 RV Internal Dim ED PLAX 2.4 cm LA Systolic Diameter LX 4.1 cm 3.0 - 4.0 / 2.7 - 3.8 cm M-MODE AV Cusp Separation MM 2.0 cm DOPPLER LVOT Peak Velocity 150.0 cm/s LVOT Peak Gradient 9.0 mmHg MR Peak Velocity 384.0 cm/s MR Peak Gradient 59.0 mmHg TR Peak Velocity 303.0 cm/s TR Peak Gradient 36.7 mmHg Right Atrial Pressure 10.0 mmHg Pulmonary Artery Systolic Pressu 46.7 mmHg Right Ventricular Systolic Press 46.7 mmHg FINDINGS LEFT VENTRICLE Normal left ventricular size. Wall thickness is normal. The left ventricular systolic function is normal with an estimated ejection fraction in the range of 55-60%. RIGHT VENTRICLE Normal right ventricular size and systolic function. LEFT ATRIUM The left atrial size is normal. RIGHT ATRIUM The right atrial size is normal. ATRIAL SEPTUM Normal atrial septal thickness without atrial level shunting by limited color doppler interrogation. AORTA The aortic root and proximal ascending aorta are normal in size on limited imaging. MITRAL VALVE Trace mitral valve regurgitation. AORTIC VALVE Trileaflet aortic valve. No aortic valve stenosis or regurgitation. Calcification of the non-coronary cusp. TRICUSPID VALVE The estimated pulmonary arterial pressure is 47 mmHg. PULMONARY VALVE No pulmonary valve regurgitation or stenosis. VESSELS The inferior vena cava is normal in size. PERICARDIUM No pericardial effusion. Martin Mcnair MD (Electronically Signed) Final Date:02 January 2018 09:16
[2018-01-02] MEDS: Fluconazole 100 MG Tablet PO SCH (09:20)
[2018-01-02] MEDS: guaiFENesin 600 MG ER Tablet PO SCH ×2 (09:21→22:11)
[2018-01-02] MEDS: valACYclovir 500 MG Tab PO SCH (09:21)
[2018-01-02] MEDS: Lactic Acid (Ammonium Lactate) 12% Lotion 225 GM Bottle TOPICAL SCH (09:23)
[2018-01-02] MEDS: Enoxaparin Inj 40 MG/0.4 ML Syringe SQ SCH (09:24)
[2018-01-02] MEDS: Budesonide-Formoterol 160/4.5 MCG 6 GM Inhaler INH SCH ×2 (09:24→22:12)
--- NOTE | 2018-01-02 09:54 | P.PN ---
Subjective Interval history: Follow up for fevers, unknown etiology, HIV. Patient is seen sitting upright in bed, eating breakfast. He reports continued fevers last night. Reports a continued cough, occasionally productive of white sputum with some mild associated shortness of breath. He denies any chest pain. He denies any sore throat, rhinitis, congestion, abdominal pain, nausea/vomiting, or diarrhea. Denies any headache or neck pain. He reports compliance with his medications. He follows with Dr. Sheehan as outpatient. Physical Exam Vital signs: Vital Signs 01/01/18 10:00 01/01/18 12:08 01/01/18 16:25 Temperature 98 F 97.9 F 98.4 F Pulse Rate 88 73 85 Respiratory Rate 17 20 20 Blood Pressure 120/71 102/65 106/58 L Pulse Oximetry 97 96 96 01/01/18 20:00 01/01/18 20:15 01/01/18 21:08 Temperature 99.7 F H 100.1 F H Pulse Rate 100 H 76 113 H Respiratory Rate 21 16 16 Blood Pressure 97/51 L 114/55 L Pulse Oximetry 97 95 01/02/18 00:00 01/02/18 00:59 01/02/18 04:00 Temperature 100.6 F H 98.7 F 97.6 F Pulse Rate 86 95 H 93 H Respiratory Rate 18 19 19 Blood Pressure 112/58 L 114/66 125/77 Pulse Oximetry 93 L 95 94 L 01/02/18 08:00 Temperature 97.6 F Pulse Rate 84 Respiratory Rate 17 Blood Pressure 122/69 Pulse Oximetry 96 Intake & Output 01/01/18 01/02/18 01/02/18 18:59 06:59 18:59 Intake Total 80 / 80 Balance 80 / 80 Weight 68.1 kg 64.5 kg Intake: IV 80 / 80 LR 1000 mL Inj 1,000 ML @ 100 80 / 80 mls/hr IV.CONT .Q10H [facility] Rx#: [id number] Other: Weight On Admission 68.1 kg Narrative: GENERAL: Very pleasant thin middle-aged male patient in [facility]. SKIN: Warm and dry. No rash. HEENT: Normocephalic. Atraumatic. Pupils equal and round. Mucous membranes pink and moist. Posterior oropharynx nonerythematous, no exudate, no sores on buccal mucosa. NECK: Supple. Trachea midline. CARDIOVASCULAR: Regular rate and rhythm. No murmur appreciated. RESPIRATORY: No accessory muscle use. Slightly decreased breath sounds at bilateral bases, otherwise clear to auscultation. Breath sounds equal bilaterally. GASTROINTESTINAL: Abdomen soft, non-tender, nondistended. Normoactive bowel sounds x4. MUSCULOSKELETAL: No obvious deformities. Extremities without clubbing, cyanosis , or edema. NEUROLOGICAL: Awake and alert. No obvious cranial nerve deficits. Motor grossly within normal limits. Moving all extremities spontaneously. Normal speech. PSYCHIATRIC: Appropriate mood and affect; insight and judgment normal. Results - Labs CBC & Chem 7: 01/02/18 09:43 01/02/18 09:43 Laboratory Results - last 24 hr 01/01/18 01/01/18 01/01/18 09:50 09:50 09:50 Hemoglobin A1c Total Creatine Kinase 132 Troponin I Less than 0.02 L B-Natriuretic Peptide 58 Triglycerides Cholesterol LDL Cholesterol, Calc HDL Cholesterol Cholesterol/HDL Ratio TSH 1.060 01/01/18 01/01/18 01/02/18 09:50 09:50 04:10 Hemoglobin A1c 4.4 Total Creatine Kinase 115 Troponin I Less than 0.02 L B-Natriuretic Peptide Triglycerides 46 Cholesterol 93 L LDL Cholesterol, Calc 51 HDL Cholesterol 32.4 L Cholesterol/HDL Ratio 2.87 TSH Microbiology 01/01/18 06:05 Nasal Wash Influenza Types A,B Antigen - Final Negative for FLU A and B antigen Infection due to influenza A or B cannot be ruled out since the antigen present in the sample may be below the detection limit of the test. - Imaging Impressions Venous Doppler Study 01/01/18 00:00 CONCLUSION: The study is negative for bilateral lower extremity deep venous thrombosis. Chest X-Ray 01/01/18 04:45 CONCLUSION: No acute disease Chest CTA 01/01/18 06:19 CONCLUSION: 1. No evidence of acute pulmonary embolism. 2. Left lower lobe interstitial lung disease which appears chronic. 3. No evidence of consolidating airspace disease. Assessment and Plan - Plan 57-year-old male with history of HIV compliant with medications, asthma, osteoporosis, mitral valve disease, presents with fevers, cough, shortness of breath. SIRS: Patient with persistent fever/tachycardia, T-max 100.8, HR 100s. Unclear etiology. Lactic acid 1.6. -CXR reviewed, no acute findings -Chest CTA reviewed, no PE;shows LLL interstitial lung disease appears chronic; no consolidating airspace disease -Urinalysis unremarkable -Influenza negative -Blood cultures with NGTD -ESR 43, CRP 2.84 -Supportive treatment with IV fluid hydration -Consult infectious disease, appreciate assistance HIV: Chronic, compliant with medications -Continue home HAART, azithro, bactrim -Continue outpatient follow-up with infectious disease Dr. Sheehan Asthma/COPD: chronic, no wheezing on exam -Continue Symbicort bid -Continue duonebs prn Mitral Valve Disease: reported by the patient, no murmur appreciated on exam -Patient with trace lower extremity edema, Doppler U/S negative for DVT -Echocardiogram unremarkable with EF 55-60%, trace mitral valve regurgitation DVT Prophylaxis: Lovenox sq Discharge Planning: Await infectious disease recommendations. Patient still febrile overnight.
[2018-01-02 10:34] LABS: Baso % (Auto) 0.7 % (0.0-2.0); Hematocrit 29.7 % (39.0-51.0); Hemoglobin 10.3 gm/dL (13.0-17.0); Lymph # (Auto) 0.9 th/mm3 (1.0-4.8); Lymph % (Auto) 17.4 % (9.0-44.0); Mean Corpuscular HGB Conc 34.7 % (32.0-36.0); Mean Corpuscular Hemoglobin 33.8 pg (27.0-34.0); Mean Corpuscular Volume 97.4 fL (80.0-100.0); Mean Platelet Volume 6.4 fL (7.0-11.0); Mono # (Auto) 0.2 th/mm3 (0.0-0.9); Mono % (Auto) 2.9 % (0.0-8.0); Neut # (Auto) 4.1 th/mm3 (1.8-7.7); Platelet Count 285 th/mm3 (150-450); Red Blood Count 3.05 mil/mm3 (4.50-5.90); Red Cell Distribution Width 13.5 % (11.6-17.2); White Blood Count 5.2 th/mm3 (4.0-11.0)
[2018-01-02 11:11] LABS: Alanine Aminotransferase 16 U/L (12-78); Albumin 2.7 g/dL (3.4-5.0); Alkaline Phosphatase 51 U/L (45-117); Anion Gap 8 meq/L (5-15); Aspartate Aminotransferase 18 U/L (15-37); Blood Urea Nitrogen 9 mg/dL (7-18); Calcium 8.3 mg/dL (8.5-10.1); Carbon Dioxide 24.9 meq/L (21.0-32.0); Chloride 104 meq/L (98-107); Glomerular Filtration Rate Greater Than 89 mL/min (>89); Glucose,Random 133 mg/dL (74-106); Potassium 4.5 meq/L (3.5-5.1); Sodium 137 meq/L (136-145); Total Protein 6.9 g/dL (6.4-8.2)
[2018-01-02] MEDS: DARUNAVIR COBICISTAT PO SCH (17:14)
--- NOTE | 2018-01-02 19:25 | P.CONID ---
History of Present Illness Service: Infectious disease Consult date: 01/02/18 Requesting Physician: Brittaney Isabel Reason for Consult: Evaluation and management of fever, tachycardia in a patient with HIV. Primary Care Provider: UNKNOWN Chief Complaint: Shortness of Breath/Dyspnea History of Present Illness: Mr. Donahue is a 57-year-old -Irish male with past medical history significant for HIV and asthma who came to the ER with pleuritic chest pain and shortness of breath. Patient reports that he has been following with Dr. Danielson who is an ID specialist in [facility]. He reports seeing Dr. Sheehan in May 2016 when he was referred by Dr. Danielson to see her. His PCP is reportedly and he continues to see patient and follow his Cd4 and VL. He reports his last CD4 was 200 plus and VL 2100. I called and she informs me patient was last seen in May 2016 in her office when his lowest CD4 was 64 and he had been noted to have a very resistant strain of HIV. He was placed on a regimen that patient currently is on. He reports no opportunistic infections and reports being compliant with HIV medications. He reports issues with bilateral LE pedal edema. He has been told he has Mitral regurgitation in past and was scheduled to have an ECHO but got admitted due to new issues. Patient reports his legs felt warm and tender compared after pedal edema was noted. He is dark skinned so redness could not be appreciated. ID consulted for evaluation and Mment of SIRS, fever in a patient with HIV infection. Review of Systems All other systems reviewed negative except as stated in HPI PMFSH - History History Provided By: Patient - Medical History Medical History: Medical History (Last Reviewed 01/01/18 @ 13:17 by Wilfredo Doll) Asthma HIV (human immunodeficiency virus infection) Mitral valve disease - Surgical History Surgical History: Surgical History (Last Reviewed 01/01/18 @ 13:17 by Wilfredo Doll) H/O hand surgery Hx of inguinal hernia surgery - Family History Family History: Family History (Last Updated 01/01/18 @ 09:34 by Kanu Gongora MD) Mother Family history of hypertension - Tobacco History Second Hand Smoke Exposure: Yes (occasionally) Smoking Status: Never smoker - Alcohol History How Often Do You Have a Drink Containing Alcohol: Monthly or less - Substance Use History Substance History: No History of Abuse - Travel History Recent Travel in the [facility] Within the Last 8 Weeks: No Recent Travel Out of the Country Within the Last 8 Weeks: No - Immunization History Tetanus Immunization: Unsure Medications and Allergies Active Medications: Active Medications Abacavir Sulfate (Ziagen) 600 mg PO DAILY [facility] Last Admin: 01/02/18 09:25 Dose: 600 mg Acetaminophen (Tylenol) 650 mg PO Q4H PRN PRN Reason: Temp > 100.4 Hydrocodone Bitart/Acetaminophen ([place] 5/325) 2 tab PO BID PRN PRN Reason: PAIN SCALE 1 TO 10 Last Admin: 01/01/18 22:25 Dose: 2 tab Al Hydroxide/Mg Hydroxide (Milk Of Diana Neal) 30 ml PO Q12H PRN PRN Reason: Mild Constipation Albuterol (Duoneb Neb (Prn)) 1 ampul NEB Q4HR NEB PRN PRN Reason: SHORTNESS OF BREATH Last Admin: 01/01/18 20:13 Dose: 1 ampul Azithromycin (Zithromax) 1,000 mg PO WEEKLY [facility] Bisacodyl (Dulcolax Supp) 10 mg RECTAL DAILY PRN PRN Reason: SEVERE CONSITIPATION Budesonide/Formoterol Fumarate (Symbicort 160/4.5 Mcg Inh) 2 puff INH BID [facility] Last Admin: 01/02/18 09:24 Dose: 2 puff Cetirizine HCl (Zyrtec) 10 mg PO EVERY OTHER DAY [facility] Cholestyramine Resin (Questran 4 Gm Pkt) 4 gm PO BID [facility] Last Admin: 01/02/18 09:24 Dose: 4 gm Dolutegravir Sodium (Tivicay) 50 mg PO DAILY [facility] Last Admin: 01/02/18 09:22 Dose: 50 mg Enoxaparin Sodium (Lovenox Inj) 40 mg SQ Q24H [facility] Last Admin: 01/02/18 09:24 Dose: 40 mg Ergocalciferol (Vitamin D2) 50,000 unit PO Q7D [facility] Last Admin: 01/01/18 12:18 Dose: 50,000 unit Fluconazole (Diflucan) 150 mg PO DAILY [facility] Last Admin: 01/02/18 09:20 Dose: 150 mg Fluticasone Propionate (Flonase Nasal Plover) 2 spray EACH NARE BID [facility] Last Admin: 01/02/18 09:24 Dose: 2 spray Guaifenesin (Mucinex Er) 600 mg PO BID [facility] Last Admin: 01/02/18 09:21 Dose: 600 mg Lactic Acid (Lac-Hydrin 12% Lotion) 1 applicatio TOPICAL DAILY [facility] Last Admin: 01/02/18 09:23 Dose: 1 applicatio Lactulose (Lactulose Liq) 30 ml PO DAILY PRN PRN Reason: SEVERE CONSITIPATION Lamivudine (Epivir) 300 mg PO DAILY [facility] Last Admin: 01/02/18 09:23 Dose: 300 mg Montelukast Sodium (Singulair) 10 mg PO QPM [facility] Last Admin: 01/01/18 18:10 Dose: 10 mg Darunavir-Cobicistat ([Prezcobix] 1 Tab) 1 tab PO DAILY [facility] Last Admin: 01/02/18 17:14 Dose: 1 tab Ondansetron HCl (Zofran Inj) 4 mg IV.PUSH Q6H PRN PRN Reason: NAUSEA OR VOMITING Sennosides (Senokot) 17.2 mg PO Q12H PRN PRN Reason: Moderate Constipation Trimethoprim/Sulfamethoxazole (Bactrim Ds) 1 tab PO DAILY [facility] Last Admin: 01/02/18 09:21 Dose: 1 tab Valacyclovir HCl (Valtrex) 1,000 mg PO DAILY [facility] Last Admin: 01/02/18 09:21 Dose: 1,000 mg Allergies Allergy/AdvReac Type Severity Reaction Status Date / Time ciprofloxacin Allergy Severe Hives Verified 01/01/18 14:45 indinavir Allergy Severe SEVERE,BIZARRE Verified 01/01/18 14:45 BEHAVIOR;HALLUCINATIONS NEOLOMINE Allergy Severe ASTHMA Uncoded 01/01/18 14:45 ATTACK Home Medications Medication Instructions Recorded Confirmed Type [id number] 1 tab PO DAILY 01/01/18 01/01/18 History [Triumeq] albuterol sulfate [ProAir HFA] 2 puff INHALATION Q4-6H PRN 01/01/18 01/01/18 History alendronate [Fosamax] 70 mg PO QWEEK 01/01/18 01/01/18 History ammonium lactate [AmLactin] 1 applic TOPICAL DAILY 01/01/18 01/01/18 History azithromycin 1,000 mg PO WEEKLY 01/01/18 01/01/18 History cetirizine [Zyrtec] 10 mg PO EVERY OTHER DAY 01/01/18 01/01/18 History cholestyramine (with sugar) 4 g PO BID 01/01/18 01/01/18 History darunavir-cobicistat [Prezcobix] 1 tab PO DAILY 01/01/18 01/01/18 History ergocalciferol (vitamin D2) 50,000 unit PO QWEEK 01/01/18 01/01/18 History [Vitamin D2] fluconazole 150 mg PO DAILY 01/01/18 01/01/18 History fluticasone [Flonase Allergy 2 spray INTRANASAL BID 01/01/18 01/01/18 History Relief] fluticasone-salmeterol [Advair 1 inh INHALATION BID 01/01/18 01/01/18 History Diskus] gentamicin 1 applic TOPICAL TID 01/01/18 01/01/18 History hydrocodone-acetaminophen 2 tab PO BID PRN 01/01/18 01/01/18 History hydroxyzine HCl 50 mg PO QID PRN 01/01/18 01/01/18 History ibuprofen 400 mg PO TID PRN 01/01/18 01/01/18 History levocetirizine 10 mg PO EVERY OTHER DAY 01/01/18 01/01/18 History montelukast [Singulair] 10 mg PO QPM 01/01/18 01/01/18 History mupirocin calcium [Bactroban] 1 applic TOPICAL BID PRN 01/01/18 01/01/18 History sulfamethoxazole-trimethoprim 1 tab PO DAILY 01/01/18 01/01/18 History [Bactrim DS] tramadol 50 mg PO BID 01/01/18 01/01/18 History valacyclovir [Valtrex] 1,000 mg PO DAILY 01/01/18 01/01/18 History Exam Vital signs: Vital Signs 01/01/18 20:00 01/01/18 20:15 01/01/18 21:08 Temperature 99.7 F H 100.1 F H Pulse Rate 100 H 76 113 H Respiratory Rate 21 16 16 Blood Pressure 97/51 L 114/55 L Pulse Oximetry 97 95 01/02/18 00:00 01/02/18 00:59 01/02/18 04:00 Temperature 100.6 F H 98.7 F 97.6 F Pulse Rate 86 95 H 93 H Respiratory Rate 18 19 19 Blood Pressure 112/58 L 114/66 125/77 Pulse Oximetry 93 L 95 94 L 01/02/18 08:00 01/02/18 12:00 01/02/18 16:00 Temperature 97.6 F 97.7 F 97.3 F L Pulse Rate 80 104 H 93 H Respiratory Rate 17 18 16 Blood Pressure 122/69 125/70 115/60 Pulse Oximetry 96 98 96 Intake & Output 01/02/18 01/02/18 01/03/18 06:59 18:59 06:59 Weight 64.5 kg Narrative: GENERAL: Well-nourished well-developed, not in acute distress SKIN: Cool and dry, no generalized rash HEAD: Atraumatic. Normocephalic. No temporal or scalp tenderness. EYES: Pupils equal round and reactive. Scleral icterus. No injection or drainage. No petechia ENT: Nothing abnormal detected NECK: Trachea midline. Supple, nontender, no meningeal signs. CARDIOVASCULAR: HS audible.? Systolic murmur. RESPIRATORY: Clear to auscultation bilaterally. GASTROINTESTINAL: Abdomen soft nontender. MUSCULOSKELETAL: Extremities without clubbing, cyanosis. Patient was wearing stockings. On examination currently no signs of infection. NEUROLOGICAL: Alert oriented 3. Nonfocal. Psych cooperative IV line sites ok. Results - Labs CBC & Chem 7: 01/02/18 09:43 01/02/18 09:43 Labs: Laboratory Results - last 24 hr 01/02/18 01/02/18 01/02/18 04:10 09:43 09:43 WBC 5.2 RBC 3.05 L Hgb 10.3 L Hct 29.7 L MCV 97.4 MCH 33.8 MCHC 34.7 RDW 13.5 Plt Count 285 MPV 6.4 L Neut % (Auto) 79.0 H Lymph % (Auto) 17.4 [place] % (Auto) 2.9 Eos % (Auto) 0.0 Baso % (Auto) 0.7 Neut # (Auto) 4.1 Lymph # (Auto) 0.9 L [place] # (Auto) 0.2 Eos # (Auto) 0.0 Baso # (Auto) 0.0 WBC Differential . Differential Comment Auto diff final ESR Sodium 137 Potassium 4.5 D Chloride 104 Carbon Dioxide 24.9 Anion Gap 8 BUN 9 Creatinine 0.93 Estimated GFR Greater than 89 Random Glucose 133 H Calcium 8.3 L Total Bilirubin 0.5 AST 18 ALT 16 Alkaline Phosphatase 51 Total Creatine Kinase 115 Troponin I Less than 0.02 L C-Reactive Protein Total Protein 6.9 Albumin 2.7 L 01/02/18 01/02/18 09:43 09:43 WBC RBC Hgb Hct MCV MCH MCHC RDW Plt Count MPV Neut % (Auto) Lymph % (Auto) [place] % (Auto) Eos % (Auto) Baso % (Auto) Neut # (Auto) Lymph # (Auto) [place] # (Auto) Eos # (Auto) Baso # (Auto) WBC Differential Differential Comment ESR 43 H Sodium Potassium Chloride Carbon Dioxide Anion Gap BUN Creatinine Estimated GFR Random Glucose Calcium Total Bilirubin AST ALT Alkaline Phosphatase Total Creatine Kinase Troponin I C-Reactive Protein 2.84 H Total Protein Albumin - Imaging Venous Doppler Study 01/01/18 00:00 CONCLUSION: The study is negative for bilateral lower extremity deep venous thrombosis. Chest X-Ray 01/01/18 04:45 CONCLUSION: No acute disease Chest CTA 01/01/18 06:19 CONCLUSION: 1. No evidence of acute pulmonary embolism. 2. Left lower lobe interstitial lung disease which appears chronic. 3. No evidence of consolidating airspace disease. Assessment and Plan - Plan Fever in a patient with HIV Chronic edema bilateral lower extremity ? Cardiac issues related Possible stasis dermatitis with secondary cellulitis Recommendations Discontinue all prophylaxis as patient reports CD4 above 200. Continue stockings Check 2 D ECHO if negative for vegetations and no fevers, negative blood cultures overnight and clinically stable will consider discharge to follow up with PCP and ID as outpatient. Follow cultures Follow clinical course. alexi pt alexi Isabel
[2018-01-02] MEDS: Montelukast 10 MG Tablet PO SCH (20:02)
[2018-01-03 07:28] VITALS: BP 120/64; PULSE 86; RESP 20; TEMP 97.8; O2SAT 98
[2018-01-03] MEDS: Budesonide-Formoterol 160/4.5 MCG 6 GM Inhaler INH SCH (09:48)
[2018-01-03] MEDS: Lactic Acid (Ammonium Lactate) 12% Lotion 225 GM Bottle TOPICAL SCH (09:48)
[2018-01-03] MEDS: guaiFENesin 600 MG ER Tablet PO SCH (09:49)
[2018-01-03] MEDS: DARUNAVIR COBICISTAT PO SCH (09:50)
[2018-01-03] MEDS: valACYclovir 500 MG Tab PO SCH (09:53)
--- NOTE | 2018-01-03 11:42 | P.DS ---
Date of admission: 01/01/18 08:40 Primary care physician: UNKNOWN Brief History from admission: HPI as documented by the admitting provider: This is a pleasant 57 y/o Male with HIV, Asthma, who came to ER with Pleuritic chest pain and shortness of breath Patient also reports fevers and chills. There is no nausea vomiting. There is no diaphoresis. Patient states his last CD4 count was over 200. He states he has been taking his medications as prescribed. he has COPD, Osteoporosis Seen in Emergency room, he is been followed by his Primary Care physician due to chronic lower extremity edema his Albumin is low in 3, asking for Compression stockings will order this ones for the patient, Patient update on day of discharge: Patient reports he is feeling well today. Lower extremity edema has resolved. No shortness of breath. DS: Summary Hospital Course: 57-year-old male with history of HIV compliant with medications, asthma, osteoporosis, mitral valve disease, presents with fevers, cough, shortness of breath. SIRS: Could be a viral syndrome. -CXR reviewed, no acute findings -Chest CTA reviewed, no PE;shows LLL interstitial lung disease appears chronic; no consolidating airspace disease -Urinalysis unremarkable -Influenza negative -Blood cultures negative. Patient was evaluated by infectious disease recommended monitoring off antibiotics. Fever resolved. The patient is discharged home in good condition. He is advised to follow-up outpatient with PCP and infectious disease HIV: Chronic, compliant with medications -Continue home HAART, azithro, bactrim -Continue outpatient follow-up with infectious disease Dr. Sheehan Asthma/COPD: chronic, no wheezing on exam -Continue Symbicort bid -Continue duonebs prn Mitral Valve Disease: reported by the patient, no murmur appreciated on exam -Patient with trace lower extremity edema, Doppler U/S negative for DVT -Echocardiogram unremarkable with EF 55-60%, trace mitral valve regurgitation - Time Spent with Patient Total time spent providing and/or coordinating discharge services: Less than 30 minutes - Quality: VTE Deep Vein Thrombosis/Pulmonary Embolism Present on Admission: No Exam Vital signs: Vital Signs 01/02/18 12:00 01/02/18 16:00 01/02/18 20:00 Temperature 97.7 F 97.3 F L 98.2 F Pulse Rate 104 H 93 H 101 H Respiratory Rate 18 16 18 Blood Pressure 125/70 115/60 121/74 Pulse Oximetry 98 96 96 01/03/18 00:00 01/03/18 04:00 01/03/18 07:24 Temperature 97.6 F 98.1 F 97.8 F Pulse Rate 93 H 80 86 Respiratory Rate 18 17 20 Blood Pressure 121/74 120/80 120/64 Pulse Oximetry 96 97 98 Intake & Output 01/02/18 01/03/18 01/03/18 18:59 06:59 18:59 Intake Total 300 / 300 Output Total 800 / 800 Balance 300 / 300 -800 / -800 Weight 64.8 kg Intake: Oral 300 / 300 Output: Urine 800 / 800 Other: # Voids 1 Date of Last Bowel Movement 01/02/18 # Bowel Movements 1 Narrative: GENERAL: This is a well-nourished, well-developed patient, in no apparent distress. CARDIOVASCULAR: Normal rate and regular rhythm without murmurs, gallops, or rubs. RESPIRATORY: Good respiratory efforts. Breath sounds equal and clear to auscultation bilaterally. GASTROINTESTINAL: Abdomen soft, non-tender, non-distended. Normal active bowel sounds MUSCULOSKELETAL: Extremities without cyanosis, or edema. NEURO: Alert & Oriented x4 to person, place, time, situation. Moves all ext x4 PSYCH: Appropriate mood and affect. Results Procedures completed during hospitalization: None Labs on day of discharge: Preliminary micro results at discharge 01/01/18 04:40 Aerobic Blood Culture - Preliminary Blood - Peripheral No growth in 2 days Anaerobic Blood Culture - Preliminary No growth in 2 days 01/01/18 04:50 Aerobic Blood Culture - Preliminary Blood - Peripheral No growth in 2 days Anaerobic Blood Culture - Preliminary No growth in 2 days - Impressions ITS Impressions Venous Doppler Study 01/01/18 00:00 CONCLUSION: The study is negative for bilateral lower extremity deep venous thrombosis. Chest X-Ray 01/01/18 04:45 CONCLUSION: No acute disease Chest CTA 01/01/18 06:19 CONCLUSION: 1. No evidence of acute pulmonary embolism. 2. Left lower lobe interstitial lung disease which appears chronic. 3. No evidence of consolidating airspace disease. Discharge Plan - Discharge Disposition Patient Disposition: 01 Discharge Home - Discharge Condition Condition: Good - Discharge Order Discharge Orders: Discharge Order (Routine); Ordered 01/03/18 Ordered By: Jamie Song - Physicians Team Primary Care Provider: UNKNOWN, Attending Provider: Jamie Song Other Providers: [employer] ; Ying Charles MD
--- NOTE | 2018-01-03 13:03 | P.PNID ---
Subjective Remarks: Mr. Donahue is a 57-year-old -Azerbaijani male with past medical history significant for HIV and asthma who came to the ER with pleuritic chest pain and shortness of breath. Patient reports that he has been following with Dr. Danielson who is an ID specialist in [facility]. He reports seeing Dr. Sheehan in May 2016 when he was referred by Dr. Danielson to see her. His PCP is reportedly and he continues to see patient and follow his Cd4 and VL. He reports his last CD4 was 200 plus and VL 2100. I called and she informs me patient was last seen in May 2016 in her office when his lowest CD4 was 64 and he had been noted to have a very resistant strain of HIV. He was placed on a regimen that patient currently is on. He reports no opportunistic infections and reports being compliant with HIV medications. He reports issues with bilateral LE pedal edema. He has been told he has Mitral regurgitation in past and was scheduled to have an ECHO but got admitted due to new issues. Patient reports his legs felt warm and tender compared after pedal edema was noted. He is dark skinned so redness could not be appreciated. ID consulted for evaluation and Mment of SIRS, fever in a patient with HIV infection. Overnight events reviewed No fevers No rash No diarrhea Antibiotics: HAART per / Lines: Lines ok Past Medical History: reviewed Allergies/Adverse Reactions: Allergies ciprofloxacin Allergy (Severe, Verified 01/01/18 14:45) Hives indinavir Allergy (Severe, Verified 01/01/18 14:45) SEVERE,BIZARRE BEHAVIOR;HALLUCINATIONS NEOLOMINE Allergy (Severe, Uncoded 01/01/18 14:45) ASTHMA ATTACK Objective Vital Signs 01/02/18 16:00 01/02/18 20:00 01/03/18 00:00 Temperature 97.3 F L 98.2 F 97.6 F Pulse Rate 93 H 101 H 93 H Respiratory Rate 16 18 18 Blood Pressure 115/60 121/74 121/74 Pulse Oximetry 96 96 96 01/03/18 04:00 01/03/18 07:24 Temperature 98.1 F 97.8 F Pulse Rate 80 86 Respiratory Rate 17 20 Blood Pressure 120/80 120/64 Pulse Oximetry 97 98 Intake & Output 01/02/18 01/03/18 01/03/18 18:59 06:59 18:59 Intake Total 300 / 300 Output Total 800 / 800 Balance 300 / 300 -800 / -800 Weight 64.8 kg Intake: Oral 300 / 300 Output: Urine 800 / 800 Other: # Voids 1 Date of Last Bowel Movement 01/02/18 01/03/18 # Bowel Movements 1 01/01/18 04:40 Blood - Peripheral Aerobic Blood Culture - Preliminary No growth in 2 days 01/01/18 04:40 Blood - Peripheral Anaerobic Blood Culture - Preliminary No growth in 2 days 01/01/18 04:50 Blood - Peripheral Aerobic Blood Culture - Preliminary No growth in 2 days 01/01/18 04:50 Blood - Peripheral Anaerobic Blood Culture - Preliminary No growth in 2 days 01/01/18 06:05 Nasal Wash Influenza Types A,B Antigen - Final Negative for FLU A and B antigen Infection due to influenza A or B cannot be ruled out since the antigen present in the sample may be below the detection limit of the test. Lab - Hematology Results 01/02/18 01/02/18 09:43 09:43 WBC 5.2 RBC 3.05 L Hgb 10.3 L Hct 29.7 L MCV 97.4 MCH 33.8 MCHC 34.7 RDW 13.5 Plt Count 285 MPV 6.4 L Neut % (Auto) 79.0 H Lymph % (Auto) 17.4 [place] % (Auto) 2.9 Eos % (Auto) 0.0 Baso % (Auto) 0.7 Neut # (Auto) 4.1 Lymph # (Auto) 0.9 L [place] # (Auto) 0.2 Eos # (Auto) 0.0 Baso # (Auto) 0.0 WBC Differential . Differential Comment Auto diff final ESR 43 H Lab - Chemistry Results 01/01/18 01/02/18 01/02/18 09:50 04:10 09:43 Sodium 137 Potassium 4.5 D Chloride 104 Carbon Dioxide 24.9 Anion Gap 8 BUN 9 Creatinine 0.93 Estimated GFR Greater than 89 Random Glucose 133 H Hemoglobin A1c 4.4 Calcium 8.3 L Total Bilirubin 0.5 AST 18 ALT 16 Alkaline Phosphatase 51 Total Creatine Kinase 115 Troponin I Less than 0.02 L C-Reactive Protein Total Protein 6.9 Albumin 2.7 L 01/02/18 09:43 Sodium Potassium Chloride Carbon Dioxide Anion Gap BUN Creatinine Estimated GFR Random Glucose Hemoglobin A1c Calcium Total Bilirubin AST ALT Alkaline Phosphatase Total Creatine Kinase Troponin I C-Reactive Protein 2.84 H Total Protein Albumin Imaging: ITS Impressions Venous Doppler Study 01/01/18 00:00 CONCLUSION: The study is negative for bilateral lower extremity deep venous thrombosis. Chest X-Ray 01/01/18 04:45 CONCLUSION: No acute disease Chest CTA 01/01/18 06:19 CONCLUSION: 1. No evidence of acute pulmonary embolism. 2. Left lower lobe interstitial lung disease which appears chronic. 3. No evidence of consolidating airspace disease. Physical Exam: GENERAL: Well-nourished well-developed, not in acute distress SKIN: Cool and dry, no generalized rash HEAD: Atraumatic. Normocephalic. No temporal or scalp tenderness. EYES: Pupils equal round and reactive. Scleral icterus. No injection or drainage. No petechia ENT: Nothing abnormal detected NECK: Trachea midline. Supple, nontender, no meningeal signs. CARDIOVASCULAR: HS audible.? Systolic murmur. RESPIRATORY: Clear to auscultation bilaterally. GASTROINTESTINAL: Abdomen soft nontender. MUSCULOSKELETAL: Extremities without clubbing, cyanosis. Patient was wearing stockings. On examination currently no signs of infection. NEUROLOGICAL: Alert oriented 3. Nonfocal. Psych cooperative IV line sites ok Assessment and Plan - Plan Fever in a patient with HIV Chronic edema bilateral lower extremity ? Cardiac issues related Possible stasis dermatitis with secondary cellulitis Recommendations Discontinue all prophylaxis as patient reports CD4 above 200. Continue stockings 2D ECHO neg for vegetations. Follow cultures Follow clinical course. alexi pt: needs follow up with Dr.Isaac alexi Wong will sign off. Ok to discharge from ID standpoint.
[2018-01-08] MEDS ORDERED: Azithromycin 250 MG Tablet PO SCH (10:00)
== END 2018-01-03 15:02 | disposition home or self-care (01) ==
LOC: NEDA 00:29 → NEPC 00:29 → NEDA 10:15 → NEPGCP 10:52
PROVIDERS: ADMIT Family Medicine; ATTEND Family Medicine